=== PATIENT | female | born 1955 | race Caucasian/White ===

== ENCOUNTER → 2017-02-27 | Outpatient (CLI) | payer OTHER ==
--- NOTE | 2017-02-27 11:19 | DI ---
XR SHOULDER MIN 2VW,02/27/2017 11:03 AM: Clinical History: Acute pain of the left shoulder. Previous Exam: None at this facility. Findings: 4 views of the left shoulder are obtained, and demonstrate anatomic alignment without fractures. The adjacent left lung and chest wall are unremarkable. Impression: Normal left shoulder.
== END ==
LOC: ORTHO 11:13
PROVIDERS: ATTEND Physician Assistant
DX: M25.512 Pain in left shoulder (principal); M75.02 Adhesive capsulitis of left shoulder; M75.42 Impingement syndrome of left shoulder
CPT/HCPCS: 73030